=== PATIENT | female | born 1970 ===

== ENCOUNTER 2020-04-07 11:06 | Observation (INO) ==
[~2020-04-07 11:06] MED LIST: Clindamycin 900 MG/D5W BAG IVPB ONE
[2020-04-07 11:39] LABS: ABS Basophils 0.1 10^3/ul (0-0.2); ABS Eosinophils 0.2 10^3/ul (0-0.6); ABS Lymphocytes 1.6 10^3/ul (1.0-4.8); ABS Monocytes 0.5 10^3/ul (0-0.8); ABS Neutrophils 5.2 10^3/ul (1.5-7.7); Eosinophil % 2.2 %; Hematocrit 44 % (35-47); Hemoglobin 15.6 g/dL (12.0-16.0); Mean Corpuscular HGB Conc 36 g/dL (31-36); Mean Corpuscular Hemoglobin 34 pg (27-31); Mean Corpuscular Volume 95 fL (80-97); Mean Platelet Volume 7.5 fL (7.4-10.4); Platelet Count 319 10^3/uL (150-450); Red Blood Count 4.58 10^6 /uL (3.70-4.87); Red Cell Distribution Width 13 % (10-15); White Blood Count 7.5 10^3/uL (3.5-10.8)
[2020-04-07 11:45] LABS: Activated Partial Thrombo Time 31.2 seconds (26.0-38.0); INR 0.94 (0.82-1.09)
[2020-04-07] MEDS ORDERED: Ondansetron 4 mg VIAL 2 MG/ML 2 ml VIAL ONE (11:50)
[2020-04-07] MEDS ORDERED: oxyCODONE SR 10 mg TAB ONE (11:51)
[2020-04-07 12:00] LABS: HCG Pregnancy < 0.60 mIU/mL
[2020-04-07] MEDS ORDERED: Ondansetron 4 mg VIAL 2 MG/ML 2 ml VIAL IV ONE (12:00)
[2020-04-07] MEDS ORDERED: oxyCODONE SR 10 mg TAB PO ONE (12:00)
[2020-04-07] MEDS ORDERED: HYDROmorphone PCA 20 MG/20 ML PCA.SYRING PCA SCH (12:00)
[2020-04-07 12:02] LABS: Anion Gap 7 mmol/L (2-11); Blood Urea Nitrogen 9 mg/dL (6-24); CO2 Carbon Dioxide 27 mmol/L (22-32); Calcium 9.6 mg/dL (8.6-10.3); Chloride 103 mmol/L (101-111); EGFR African American 99.4 (>60); EGFR Non-African American 82.1 (>60); Glucose 96 mg/dL (70-100); Potassium 3.8 mmol/L (3.5-5.0); Sodium 137 mmol/L (135-145)
[2020-04-07] MEDS ORDERED: Heparin 2 UNITS/ML 1000 mls 2,000 ML IV ONE (13:25)
[2020-04-07] MEDS ORDERED: Lidocaine 1% VIAL 10 MG/ML VIAL ONE (13:25)
[2020-04-07] MEDS ORDERED: Iohexol 350 (CONTRAST) 200 ML MDV IV ONE (13:25)
[2020-04-07] MEDS ORDERED: fentaNYL 250 mcg/5 ml 50 MCG/ML 5 ml VIAL (250 MCG) ONE (13:33)
[2020-04-07] MEDS ORDERED: Midazolam 5 mg/5 ml VIAL 1 mg/ml 5 ml VIAL (5 mg) ONE (13:33)
[2020-04-07] MEDS ORDERED: nitroGLYCERIN DRIP 25,000 MCG/250 ML BTL ONE (13:33)
[2020-04-07] MEDS ORDERED: HYDROmorphone 1 MG/1 ML SYRINGE ONE ×2 (15:02→15:29)
[2020-04-07] MEDS ORDERED: Prochlorperazine 5 mg/ml 2 ml VIAL (10 mg) ONE (15:16)
[2020-04-07] MEDS ORDERED: Metoprolol Tartrate 5 mg VIAL 5 ml VIAL (1 mg/ml) ONE ×2 (15:19→15:35)
[2020-04-07] MEDS ORDERED: hydrALAZINE 20 mg/ml 1 ML Vial IV ONE ×2 (15:27→17:05)
[2020-04-07] MEDS ORDERED: hydrALAZINE 20 mg/ml 1 ML Vial IV IV SLOW PU PRN (16:26)
[2020-04-07] MEDS ORDERED: NS 0.9% 1,000 ML IV SCH (19:43)
[2020-04-07] MEDS ORDERED: Labetalol IV 5 MG/ML 20 ml VIAL IV PUSH PRN (19:52)
[2020-04-07] MEDS: Ondansetron 4 mg VIAL 2 MG/ML 2 ml VIAL IV SCH (20:47)
[2020-04-08] MEDS: Ondansetron 4 mg VIAL 2 MG/ML 2 ml VIAL IV SCH ×2 (02:36→08:53)
[2020-04-08] MEDS ORDERED: HYDROcodone/ACETAMIN 5/325 mg TAB PO PRN (09:11)
[2020-04-08] MEDS ORDERED: Ketorolac 10 mg TAB (NF) PO SCH ×2 (10:00→13:30)
[2020-04-08 11:35] VITALS: BP 145/85
[2020-04-10] MEDS ORDERED: Scopolamine PATCH Remove NOTE PATCH OFF SCH (12:00)
== END 2020-04-08 11:52 | disposition home or self-care (01) ==
LOC: CHICATH 11:06 → SSU 11:06
PROVIDERS: ADMIT Student in an Organized Health Care Education/Training Program; ATTEND Radiology Diagnostic Radiology
PROC: ANG.UFE (2020-04-07 12:10)